=== PATIENT | male | born 1980 | race Caucasian/White ===

== ENCOUNTER 2018-09-23 07:32 | Day surgery (SDC) | payer OTHER ==
[~2018-09-23] VITALS: Ht 185.4 cm; Wt 77.1 kg
[2018-09-23] MEDS ORDERED: NEURONTIN800 MG PO (08:25)
[2018-09-23] MEDS ORDERED: CELEXA40 MG PO (08:25)
[2018-09-23 08:39] VITALS: BP 115/72; Ht 185.4 cm; Wt 77.1 kg
--- NOTE | 2018-09-23 13:21 | NUR ---
1310 ASSISTED UP TO BR, UNABLE TO VOID RETURNED TO BED.
--- NOTE | 2018-09-25 17:03 | PN ---
PATIENT:ARMANI DEWEY MEDICAL RECORD: [id number] [facility] AD[facility] DATE: 09/23/18 PROGRESS NOTE DATE OF SERVICE: 09/23/2018 This is a progress note to Dr. Dada Silver. The patient underwent a laparoscopic cholecystectomy with cholangiogram today. He has got no history of hepatitis, so a liver biopsy was not performed. In the condensed consultation request, it stated that I should consider an EGD as well. This is the first that I had heard of that. I have seen the patient in the past. I believe about 2 years ago I performed an EGD then. If his pain and symptoms do not resolve with the cholecystectomy, I will be very happy for perform an EGD, which could be done at the custodial during one of the GI clinic days. TRANSINT:[id number] Voice Confirmation ID: [id number] DOCUMENT ID: [id number] ELEANOR GAO MD at 1703 CC: DADA SILVER MD [id number] DICTATION DATE: 09/23/18 1214 IMMIGRATION SERVICES OFFICER: 09/23/18 1249 [facility] 09/23/18 [facility] [address] [place] [address]
== END 2018-09-23 14:45 | disposition home or self-care (01) ==
LOC: D.OPS 07:32
PROVIDERS: ATTEND Surgery
DX: K82.4 Cholesterolosis of gallbladder (principal); Z01.812 Encounter for preprocedural laboratory examination

== ENCOUNTER 2020-08-15 07:20 | Day surgery (SDC) | payer OTHER ==
[~2020-08-15] VITALS: Ht 185.4 cm; Wt 65.0 kg
[~2020-08-15 07:20] MED LIST: CELEXA40 MG PO; NEURONTIN800 MG PO
[2020-08-15 09:53] VITALS: BP 101/63; Ht 185.4 cm; Wt 65.0 kg
[2020-08-15 10:21] LABS: HEMATOCRIT 35.7 % (42.0-54.0); HEMOGLOBIN 12.1 g/dL (13.5-17.5); MCH 31.7 pg (26.0-34.0); MCV 93.2 fL (80.0-100.0); MEAN PLATELET VOLUME 8.6 fL (7.4-10.4); RBC 3.83 10x6/uL (4.20-6.10); RDW 13.2 % (11.5-14.5); WBC 4.5 10x3/uL (4.8-10.8)
[2020-08-15 10:29] LABS: APTT 32.8 SECONDS (22.8-39.4); INR 1.14 (0.85-1.17); PROTIME 13.6 SECONDS (11.6-15.0)
[2020-08-15 10:34] LABS: ALBUMIN 3.8 g/dL (3.4-5.0); ALKALINE PHOSPHATASE 55 U/L (30-120); ALT (SGPT) 87 U/L (10-68); BILIRUBIN - TOTAL 0.75 mg/dL (0.2-1.3); CALC OSMOLALITY 284 mosm/kg (275-300); CALCIUM 9.1 mg/dL (8.5-10.1); CARBON DIOXIDE 31.3 mmol/L (21.0-32.0); CHLORIDE - SERUM 103 mmol/L (98-107); GLUCOSE 87 mg/dL (74-106); POTASSIUM - SERUM 3.9 mmol/L (3.5-5.1); PROTEIN - SERUM 6.8 g/dL (6.4-8.2); SODIUM 142 mmol/L (136-145); UREA NITROGEN 21 mg/dL (7-18); eGFR NON AFRICAN AMERICAN 89 mL/min (90-120)
--- NOTE | 2020-08-15 12:42 | NUR ---
[address] GAO. PROCEDURE FINDINGS DISCUSSED WITH PATIENT. Mary MIRELES R.N.
--- NOTE | 2020-08-15 14:27 | NUR ---
1323 DRESSED, AWAKE, & ALERT. PROVIDED WITH DISCHARGE INFORMATION INCLUDING: MED REC., [facility] POST ENDOSCOPY D/C INSTRUCTIONS, & SHEET LISTING NSAIDS TO AVOID X'S 10 DAYS. COPIES OF HEMOGRAM, CMP, PT,PTT, INR, HISTORY & PHYSICAL,& POSTOP PROGRESS NOTE MADE & SENT BACK WITH D/C INFORMATION FOR PT.'S RECORDS @ [facility]. RELEASED AMBULATORY FROM [facility] WITH [facility] GUARDS X'S 2. TO [facility] PER [facility] [place]. Mary MIRELES R.N.
--- NOTE | 2020-08-15 16:13 | OP ---
PATIENT NAME: ARMANI DEWEY MEDICAL RECORD: [id number] :84 LOCATION:D[facility] ADMISSION DATE: SURGEON: ELEANOR GAO MD DATE OF OPERATION: 08/15/2020 PREOPERATIVE DIAGNOSIS: Right upper quadrant abdominal pain. POSTOPERATIVE DIAGNOSES: 1. Multiple punctate actively bleeding gastric ulcers. 2. LA stage II esophagitis. 3. Large hiatal hernia. 4. Questionable Soriano's esophagus. 5. Normal duodenum. 6. Distal esophageal Schatzki's ring, which was not tight. PROCEDURE: Esophagogastroduodenoscopy with small bowel antral distal esophageal and mid esophageal biopsies. SURGEON: Eleanor Gao MD TEACHING ARTIST: None. BLOOD LOSS: Minimal. ANESTHESIA: Topical only. The patient wanted only topical anesthetic and did not want IV sedation. He did great without any sedation. ENDOSCOPIC COURSE: The patient was conveyed to the endoscopy suite electively on 08/15/2020. No IV anesthetic was given. Topical oral anesthesia was given. A gastroscope was inserted into the mouth. It is advanced easily into the hypopharynx. The esophagus was easily intubated as were the stomach and duodenum. Upon withdrawal, retroflexed and angulus views were obtained. A mid esophageal biopsies were obtained. Antral biopsies were obtained to rule out H. pylori. Distal esophageal biopsies were obtained to rule out Soriano's esophagus. Mid esophageal biopsies were obtained to rule out eosinophilic esophagitis. It appears that the bleeding areas are coming from multiple punctate actively bleeding gastric ulcers. Flecks of blood were present throughout the stomach. Due to the fact that I was performing this procedure without IV sedation, I did not attempt to dilate the distal esophageal stricture, which has been asymptomatic for the patient. Endoscope was then withdrawn under direct vision. Even though the patient states that H2 blockers and PPIs made him worse that is indeed what I would recommend, either one of the other for his condition. He wants to consider a repeat upper endoscopy in 6 months to ensure clearing of the ulcers. There is no need for the patient to see me in the office unless he develops complication related to this operative procedure. If I do need to do a post-procedural visit, we can do this over a telehealth or he can come to see me on one of my GI clinic days at the [facility]. OPERATIVE REPORT [id number] ARMANI DEWEY ADDENDUM The patient states that spicy diet makes his symptoms worse. I think it is reasonable to place him on a bland diet. As I said before, I would recommend an H2 serena or PPI and the patient is now amenable to this treatment. He has been having some rectal bleeding and some rectal pain and this could indicate ulcerative colitis. At the time of his upper endoscopy in 6 months, I would recommend that we perform a colonoscopy as well. He is going to require a 2-day prep at least due to chronic constipation. Due to his abnormal heart rhythm, I would recommend a cardiology consultation. TRANSINT:[id number] Voice Confirmation ID: [id number] DOCUMENT ID: [id number] cc: Aileen Desai Sr PTA, unknown. Sent to [facility]. ELEANOR GAO MD at 1613 CC: [id number] DICTATION DATE: 08/15/20 1231 AWAKE OVERNIGHT COUNSELOR: 08/15/20 1259 [facility] 08/15/20 [place] [id number] [place] [address]
--- NOTE | 2020-08-15 16:13 | HP ---
PATIENT: ARMANI DEWEY MEDICAL RECORD: [id number] ACCOUNT: [id number] LOCATION:[facility] : 84 ADMISSION DATE: 08/15/20 PCP: KEVIN SILVER MD HISTORY AND PHYSICAL EXAMINATION HISTORY OF PRESENT ILLNESS: The patient has a number of complaints including nausea, vision changes, right upper quadrant pain. I performed a cholecystectomy on him, which revealed cholesterolosis with a polyp. He states that the cholecystectomy actually did not make anything better, as a matter fact it made it worse. He is constipated all the time. Most of his symptoms are right upper quadrant pain. He states it mainly has to do with food intake, particularly greasy or salty foods. The patient states he has only been able to eat beans and chicken and has lost 39 pounds over the past year. His BMI is low. The patient states that he rarely has a bowel movement. His heart is markedly irregular today with intermittent tachycardia as well as bradycardia. I wonder if he does not have a conduction defect or tachybrady syndrome. His rhythm appears to flip in and out of atrial fibrillation to a text book sinus rhythm. HOME MEDICATIONS: Reviewed. ALLERGIES: No known drug allergies. SOCIAL HISTORY: Nonsmoker. He admits to some meth abuse in the past. PAST MEDICAL AND SURGICAL HISTORY: Hypertension, heart rhythm problems, angina, hepatitis C, cholecystectomy. REVIEW OF SYSTEMS: No diarrhea. He has never had peptic ulcer disease. No odynophagia. No dysphagia. PHYSICAL EXAMINATION: GENERAL: The patient does not appear acutely ill. He does not appear chronically ill. VITAL SIGNS: Reviewed. EARS: External ears appear normal. EYES: Extraocular movements are intact. NECK: Trachea is midline. CHEST: No intercostal retractions. PULMONARY: Nonlabored. No stridor. ABDOMEN: Right upper quadrant tenderness with guarding. IMPRESSION: Right upper quadrant tenderness refractory to cholecystectomy. PLAN: EGD. TRANSINT:[id number] Voice Confirmation ID: [id number] DOCUMENT ID: [id number] cc: Kyree Desai Sr, APN, unknown. Sent report to [facility]. HISTORY AND PHYSICAL [id number] ARMANI DEWEY, ELEANOR RODRIGUEZ at 1613 CC: [id number] DICTATION DATE: 08/15/20 [address]150 R[address]TE SALESMAN AND DRIVER: 08/15/20 1217 [facility]P [facility] 08/15/20 [facility] [address] [place] [address]
== END 2020-08-15 13:23 ==
LOC: D.OPS 07:20
PROVIDERS: Anesthesiology; ATTEND Surgery
DX: R10.11 Right upper quadrant pain (principal); K21.00 Gastro-esophageal reflux disease with esophagitis, without bleeding; K44.9 Diaphragmatic hernia without obstruction or gangrene; K22.2 Esophageal obstruction; I10 Essential (primary) hypertension; I20.8 Other forms of angina pectoris